=== PATIENT | female | born 1985 | race Caucasian/White ===

== ENCOUNTER → 2020-01-03 13:59 | Outpatient (CLI) | payer BC, SELFPAY | PROVIDERS: Referring Provider Nurse Practitioner Family; Visit Provider Nurse Practitioner Family | DX: R05 Cough (principal); R50.9 Fever, unspecified; R51 Headache; M79.10 Myalgia, unspecified site; R06.02 Shortness of breath | CPT/HCPCS: 87635; U0004 ==

== ENCOUNTER 2024-05-26 09:42 | Day surgery (SDC) | payer BC, SELFPAY ==
--- NOTE | 2024-05-26 | LES_PTH ---
PATIENT: MARYANN WILLIAMSON LOC: [facility] [place] U#:[id number] AGE/SX: 38/F ROOM: RE05/26/[address]: Dr. Catie Garcia MD : 1985 BED: DIS: 05/26/2024 SPEC #: [id number] RECD: 05/26/24 12:54 STATUS: IZZY ROSAS #: [id number] JANET: 05/26/24 00:[address]: Catie Garcia DEPT: SURGICAL PATHOLOGY RECD BY: Raj Torre ENTERED: 05/26/24 12:54 SP TYPE: Lesion OTHR DR: Dr. 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 Negative for malignancy. 05/29/2024 COMMENT Case has been reviewed in consultation with Dr. Soto who concurs with the above diagnosis. IDC:AM MICROSCOPIC DESCRIPTION Slides are reviewed. 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 The specimen consists of a caicedo-white skin ellipse measuring 1.4 x 0.7 x 0.9cm. The specimen is inked, serially sectioned and submitted entirely in one cassette. 05/26/2024 TC:5 CPT:74038
[2024-05-26 10:00] VITALS: BP 163/80; PULSE 95; RESP 16; TEMP 36.6; O2SAT 100; BMI 29.0
--- NOTE | 2024-05-26 10:41 | PCM.HP.BLA ---
History and Physical Date of Admission: 05/26/24 The patient is examined and there are no changes to the H&P dated 05/23/24. Pt for excision lesion left areola. Informed consent was obtained. 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
[2024-05-26 10:49] VITALS: BP 134/69; BP 137/71; O2SAT 100
[2024-05-26] MEDS: Lidocaine 1% /Epi 1:100 9 ML, Sodium Bicarbonate 1 MEQ OPERA.SITE (10:56)
--- NOTE | 2024-05-26 11:19 | DCINST_ITS ---
Discharge Instructions Dressing / Incision Additional Dressing/Incision Instructions:: Keep your back elevated (recliner position) to help reduce swelling and bruising. Take the oral antibiotic (Keflex) 2 times a day until finished. May leave the tape in place. Try to keep the tape dry. If the tape falls off, apply a thin layer of antibiotic ointment (like Neosporin, bacitracin, or triple antibiotic ointment) 1 time a day Follow Up Care Please Follow Up With: Catie Garcia MD When: In 1 to 2 weeks Test Results: Test results from this visit will be discussed in further detail at your follow- up appointment, if applicable. Discharge Plan Admission Attending Provider: Catie Garcia Primary Care Provider: Francois Baird Instructions Print Language: Pashto Discharge Orders/Prescriptions Prescriptions: New cephalexin 500 mg capsule 500 mg PO BID 5 Days Qty: 10 0RF Referrals / Follow Up: Francois Baird MD [Primary Care Provider] - Disposition Disposition (needs filled in before D/C Order can be placed): Home, Self Care
--- NOTE | 2024-05-26 11:23 | PCM.OPRPT ---
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 She presents for excision of the neoplasm with submission for pathologic evaluation. The patient is brought to the operating room and placed on the operating room table in the supine position. The left breast is prepped and draped in the usual sterile fashion. 1% Xylocaine with epinephrine is used for local anesthetic. Following this, the site is excised in an elliptical fashion and passed off the operative field to be sent to pathology. Hemostasis is controlled with cautery. The incision is then closed with a combination of interrupted and running chromic suture. Dermabond and Steri-Strips were placed on the site. She tolerated the procedure well was taken to the recovery area in an awake and stable condition. Needle and sponge counts are correct. Complications None Admit VTE Documentation VTE Mechan Device Prophylaxis: None Reason prophylaxis not ordered:: Treatment Not Indicated
[2024-05-26 11:32] VITALS: BP 121/64; BP 163/80; PULSE 74; RESP 16; TEMP 37.3; O2SAT 100
== END 2024-05-26 11:39 | disposition home or self-care (01) ==
LOC: SDC 09:44 → AC 09:51
PROVIDERS: PCP Family Medicine; Referring Provider Plastic Surgery; Visit Provider Plastic Surgery
PROC: (CPT 19120; principal; 2024-05-26 10:30)
DX: N60.22 Fibroadenosis of left breast (principal)
CPT/HCPCS: 19120; 88305